=== PATIENT | male | born 1960 | race Caucasian/White ===

== ENCOUNTER 2024-05-21 12:00 | Inpatient (IN) | payer OTHER ==
[2024-05-11 15:11] LABS: BILIRUBIN,URINE NEGATIVE (Neg); CLARITY,URINE SLIGHTLY CLOUDY (Clear); COLOR,URINE YELLOW (Yellow); GLUCOSE, URINE NEGATIVE (Neg); KETONES,URINE NEGATIVE (Neg); LEUKOCYTE ESTERASE ,URINE TRACE (Neg); NITRITES, URINE NEGATIVE (Neg); OCCULT BLOOD,URINE NEGATIVE (Neg); PROTEIN,URINE NEGATIVE (Neg)
[2024-05-11 15:16] LABS: BASOPHILS # (AUTO) 0.1 X10'3 (0-0.2); BASOPHILS % (AUTO) 0.7 % (0-1); EOSINOPHILS # (AUTO) 0.5 X10'3 (0-0.9); EOSINOPHILS % (AUTO) 4.5 % (0-6); HEMATOCRIT 50.8 % (42.0-52.0); HEMOGLOBIN 17.6 g/dl (14.0-17.9); LYMPHOCYTES % (AUTO) 28.2 % (21-51); MEAN CORPUSCULAR HEMOGLOBIN 32.7 PG (27.0-31.0); MEAN CORPUSCULAR HGB CONC 34.5 g/dL (33.0-36.5); MEAN CORPUSCULAR VOLUME 94.5 FL (78-98); MEAN PLATELET VOLUME 8.3 FL (7.4-10.4); MONOCYTES # (AUTO) 1.2 X10'3 (0-0.9); MONOCYTES % (AUTO) 11.2 % (2-12); NEUTROPHILS # (AUTO) 5.9 X10'3 (1.8-7.7); NEUTROPHILS % (AUTO) 55.4 % (42-75); PLATELET COUNT 275 X10'3 (140-440); RED BLOOD COUNT 5.38 X10'6 (4.70-6.10); RED CELL DISTRIBUTION WIDTH 14.9 % (11.5-14.5); WHITE BLOOD COUNT 10.7 X10'3 (4.5-11.0)
[2024-05-11 15:32] LABS: ALANINE AMINOTRANSFERASE 47 U/L (12-78); ALBUMIN 3.8 G/DL (3.4-5.0); ALKALINE PHOSPHATASE 60 IU/L (46-116); ANION GAP 8 (8-16); ASPARTATE AMINO TRANSFERASE 19 U/L (10-37); BILIRUBIN,TOTAL 0.6 MG/DL (0.1-1.0); BLOOD UREA NITROGEN 8 MG/DL (7-18); BUN/CREATININE RATIO 7.3 (10.0-20.0); CALCIUM 9.1 MG/DL (8.5-10.1); CHLORIDE 105 MMOL/L (99-107); CREATININE 1.09 MG/DL (0.60-1.10); GLUCOSE 94 MG/DL (70-104); POTASSIUM 3.9 MMOL/L (3.5-5.1); SODIUM 138 MMOL/L (135-145); TOTAL CARBON DIOXIDE 25.1 MMOL/L (24-32); TOTAL PROTEIN 7.6 G/DL (6.4-8.2); eGFR 69 ML/MIN
[2024-05-11 15:38] LABS: UA COLLECTION TYPE VOIDED
[2024-05-11 15:39] LABS: BACTERIA,URINE FEW /HPF (Neg); RBC,URINE NONE SEEN /HPF (0-2); SQUAMOUS EPITHELIAL CELL,UR MANY /LPF (FEW); WBC,URINE 0-4 /HPF (0-4)
[2024-05-11 15:40] LABS: MUCUS STRANDS FEW /LPF (Neg)
[~2024-05-21] VITALS: Ht 185.4 cm; Wt 124.7 kg
[~2024-05-21 12:00] MED LIST: ASPI-611 PO; LOSA-416 PO
[2024-05-22] VITALS (20 sets, daily range): BP systolic 107–144; BP diastolic 63–79; PULSE 64–96; RESP 13–20; TEMP 97.4–98.2; O2SAT 95–99
[2024-05-22] MEDS: bacitracin 15gm ointment TP ONE ×2 (07:08→10:30)
[2024-05-22] MEDS: famotidine 20mg tablet PO ONE (07:40)
[2024-05-22] MEDS: vancomycin 1,500 MG in NS 300ml IV soln IV ONE (07:41)
[2024-05-22] MEDS: ringers solution, lacted 1,000 ML IV SCH (07:41)
[2024-05-22] MEDS ORDERED: fentaNYL/PF 50MCG/1 ML 2ML syringe ONE ×2 (10:28→12:16)
[2024-05-22] MEDS ORDERED: sevoflurane 250ml liquid IH ONE (10:32)
[2024-05-22] MEDS ORDERED: naloxone 0.4 mg/ml inj IV PRN (12:51)
[2024-05-22] MEDS ORDERED: diphenhydrAMINE 25mg capsule PO PRN ×2 (12:55)
[2024-05-22] MEDS ORDERED: bisacodyl 10mg suppository rectal RC PRN (12:55)
[2024-05-22] MEDS ORDERED: HYDROcodone/acetaminophen 10/325mg tab PO PRN (12:55)
[2024-05-22] MEDS ORDERED: ondansetron/PF 4mg/2ml inj IV PRN (12:55)
[2024-05-22] MEDS ORDERED: acetaminophen 325mg tablet PO PRN (12:55)
[2024-05-22] MEDS ORDERED: magnesium hydroxide 30ml (MOM) UD suspension PO PRN (12:55)
[2024-05-22] MEDS ORDERED: ringers solution, lacted 1,000 ML IV SCH (13:40)
[2024-05-22] MEDS ORDERED: HYDROmorphone/PF 0.2 MG/ML SYRINGE IV PRN (13:40)
[2024-05-22] MEDS ORDERED: proMETHazine 25mg rectal suppository RC PRN (13:40)
[2024-05-22] MEDS: BUPIVAcaine/PF 2.5mg/ml (0.25%) 10ml vial ONE (15:07)
[2024-05-22] MEDS: vancomycin/NS 1 GM ADD-VANTAGE 250 ML IV SCH (18:58)
[2024-05-22] MEDS: sennosides 8.6mg tablet PO SCH (19:14)
[2024-05-22] MEDS: HYDROcodone/acetaminophen 10/325mg tab PO PRN (19:14)
[2024-05-23 02:00] VITALS: BP 113/55; PULSE 80; RESP 18; TEMP 97.9; O2SAT 98
[2024-05-23 06:45] VITALS: BP 106/56; PULSE 71; RESP 18; TEMP 97.4; O2SAT 96
[2024-05-23 08:00] VITALS: RESP 16; O2SAT 96
[2024-05-23] MEDS: losartan 50mg tablet PO SCH (08:42)
[2024-05-23] MEDS: aspirin 81mg, enteric-coated 1 TAB TABLET.DR PO SCH (08:43)
[2024-05-23 09:12] LABS: BASOPHILS % (AUTO) 0.2 % (0-1); EOSINOPHILS % (AUTO) 0 % (0-6); HEMATOCRIT 47.5 % (42.0-52.0); LYMPHOCYTES # (AUTO) 1.2 X10'3 (1.1-4.8); LYMPHOCYTES % (AUTO) 5.2 % (21-51); MEAN CORPUSCULAR HEMOGLOBIN 32.2 PG (27.0-31.0); MEAN CORPUSCULAR HGB CONC 33.6 g/dL (33.0-36.5); MEAN CORPUSCULAR VOLUME 95.8 FL (78-98); MEAN PLATELET VOLUME 8.2 FL (7.4-10.4); MONOCYTES % (AUTO) 4.3 % (2-12); NEUTROPHILS # (AUTO) 21.3 X10'3 (1.8-7.7); NEUTROPHILS % (AUTO) 90.3 % (42-75); PLATELET COUNT 226 X10'3 (140-440); RED BLOOD COUNT 4.95 X10'6 (4.70-6.10); RED CELL DISTRIBUTION WIDTH 15.1 % (11.5-14.5); WHITE BLOOD COUNT 23.5 X10'3 (4.5-11.0)
[2024-05-23] MEDS: heparin, porcine 5000 units/ml vial SQ SCH (09:18)
[2024-05-23 10:00] VITALS: BP 112/53; PULSE 85; RESP 18; TEMP 97.5; O2SAT 96
[2024-05-23 13:14] VITALS: RESP 18
== END 2024-05-23 14:55 | disposition home or self-care (01) | DRG 469 ==
LOC: PAS IN 05-22 06:43 → ORTHO 4S 05-22 13:59
PROVIDERS: ADMIT Podiatrist Foot & Ankle Surgery; ATTEND Podiatrist Foot & Ankle Surgery
PROC: 0SPF0JZ Removal of Synthetic Substitute from Right Ankle Joint, Open Approach (ICD-10-PCS; 2024-05-22)
PROC: 3E0T3BZ Introduction of Anesthetic Agent into Peripheral Nerves and Plexi, Percutaneous Approach (ICD-10-PCS; 2024-05-22)
PROC: 0SRF0JZ Replacement of Right Ankle Joint with Synthetic Substitute, Open Approach (ICD-10-PCS; principal; 2024-05-22 10:32)
DX: M19.071 Primary osteoarthritis, right ankle and foot (principal); M76.821 Posterior tibial tendinitis, right leg; I10 Essential (primary) hypertension; Z88.0 Allergy status to penicillin
CPT/HCPCS: Z7506; Z7508; 36415; 73600; 76000; 80053; 81001; 82948; 85025; 93005; 97116; 97161; 97530; A4618; A6223; A6258; A6449; A7000; C1713; C1776; G0378; J1100; J1644; J2405; J2704; J3010; J3370; J3490; J7120